=== PATIENT | female | born 1955 | race Caucasian/White ===

== ENCOUNTER → 2016-09-21 | Day surgery (SDC) | payer MEDICARE, OTHER ==
[~2016-09-21] MED LIST: APREPITANT 40 MG CAP ONE; ASPI1TAB69 PO; ASPI81 PO; B COTAB3 PO; B COTAB8 PO; BAYE2KIT; BLOOD GLUCOSE T1 TES T-DERMAL; BUPIVACAINE HCL PF 0.25% 30 ML VIAL ONE; CALCCHW25 CHEW; CALCCHW6 PO; CLINDAMYCIN PHOS 600 MG/4 ML VIAL ONE; LACTATED RINGER'S 1,000 ML BAG IV ONE; LANTUS2P SC; LANTUS2P SQ; LEVO150T7 PO; MULT-135 PO; NOVOLOGP2 SQ; OCUVTAB PO; ONDANSETRON HCL 4 MG/2 ML VIAL IV PUSH ONE; PNEU13P IM; PROPOFOL 500 MG/50 ML BTL IV ONE; RAMI2.5C PO; RAMI2.5C29 PO; SODIUM CHLORIDE 0.9% SOLN 100 ML BAG IV ONE; TAB-TAB PO; [UNRECOGNIZED DRUG - REMARK] TOP
--- NOTE | 2016-09-26 06:43 | MP ---
cc: RAMILA BOSTON DPM DATE OF SURGERY: 09/21/2016 PREOPERATIVE DIAGNOSIS: Left foot ulcer. POSTOPERATIVE DIAGNOSIS Left foot ulcer. PROCEDURES PERFORMED Full-thickness ulcer debridement with application of Apligraf. SPECIMEN Soft tissue for pathological analysis. Deep wound culture for microbial analysis. ESTIMATED BLOOD LOSS Less than 30 ml COMPLICATIONS None ANESTHESIA General with local anesthesia. DRAINS: None. TOURNIQUET TIME: None PLAN OF ACTIVITY: PACU then DC home once stable per same-day surgery criteria. JUSTIFICATION FOR PROCEDURE: The patient is a 61 year-old female with a chronic ulcer, greater than 2-3 months. She has been compliant with wound care, offloading and ulcer has remained. We devised a plan to move forward with debridement with possible need for more surgery at a later date. PROCEDURE IN DETAIL Under mild sedation, the patient was brought to the operating room, placed in the operating room table in supine position. Following the induction of general anesthesia, TIVA with local, the patient's left foot was scrubbed, prepped and draped in the usual aseptic fashion. The foot was elevated and examined. There was noted to be a partial thickness borderline full thickness ulcer of the plantar aspect of the foot. Upon sharp excision of the hyperkeratotic rim, the ulcer measured approximately 2 cm x 2.5 cm with 3-4 mm of depth. No bone exposed, no tendon exposed. Utilizing surgical forceps and a 15 blade a sharp excisional debridement took place of the wound to viable bleeding tissue. Curette was used to debride the base of the wound to a viable bleeding base. The wound was then flushed with copious amounts of normal saline. Apligraf was then applied, sutured intact, a bolster bandage was then placed and a Demarco compressive dressing. Deep specimen was taken of the ulcers centrally as well as a deep culture before applying bandage. The patient was then transferred from OR to PACU with all vital signs stable. The patient tolerated the procedure well. She is strict non-weightbearing, follow up within one week. DEVAUGHN Ramires/DANITA /1:41 PM /6:32 AM
== END | disposition home or self-care (01) ==
LOC: ESDC 11:39
PROVIDERS: ATTEND Podiatrist Foot & Ankle Surgery
DX: L97.529 Non-pressure chronic ulcer of other part of left foot with unspecified severity (principal); E11.9 Type 2 diabetes mellitus without complications; Z79.4 Long term (current) use of insulin
CPT/HCPCS: 82948; 86403; 87015; 87070; 87102; 87116; 87205; 87206; 88305; J2405; J3010; J7120; J8501; Q4101